=== PATIENT | female | born 1995 | race Caucasian/White ===

== ENCOUNTER 2018-03-27 03:42 | Emergency (ER) | payer OTHER, SELFPAY ==
[2018-03-27 03:59] VITALS: BP 150/64; PULSE 80; RESP 20; TEMP 36.4; O2SAT 96; BMI 35.2
--- NOTE | 2018-03-27 04:46 | DI.RAD.S_ITS ---
PROCEDURE: XR CHEST 1V INDICATIONS: ribs feel assymetric, patient feels tight in chest TECHNIQUE: One view of the chest was acquired. COMPARISON: [facility], , CHEST 2 VIEW, 06/05/2016, 13:16. FINDINGS: Surgical changes and devices: None. Lungs and pleura: No pleural effusions or pneumothorax. Lungs are clear. Mediastinum: Mediastinal contours appear normal. Heart size is normal. Bones and chest wall: No suspicious bony lesions. Overlying soft tissues appear unremarkable. IMPRESSION: No acute cardiopulmonary disease process. Dictated by: Gregoria Dexter MD, PhD on 03/27/2018 at 7:25 Approved by: Gregoria Dexter MD, PhD on 03/27/2018 at 7:25
--- NOTE | 2018-03-27 05:00 | ED_ITS ---
HPI - SOB/Dyspnea General Chief Complaint: Shortness of Breath/Dyspnea Stated Complaint: UNABLE TO BREATH, LUMP IN THROAT Time Seen by Provider: 03/27/18 04:26 Source: patient Mode of arrival: ambulatory Limitations: no limitations History of Present Illness This is a 22-year-old female comes to the emergency department with complaint of pain in her chest and back. Patient states that her ribs are out of place. She states that this is been going on for a long time she has been seen by a chiropractor followed by uzair Garg for osteopathic evaluation. 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 Patient states that she has had multiple x-rays and been told nothing was wrong. Tonight she states that she had been cleaning earlier in the day Um and had exacerbated her symptoms. She states that it feels like everything is out of place. She states that it feels quite uncomfortable, she feels that she needs anti- inflammatory medication. She states she was given a short course of what sounds like prednisone in the past at a low dose but that she feels she needs more over a longer period of time. Patient feels like she is having fevers on and off very quickly together. She feels short of breath in that it is hard to take a deep breath, she feels like something is stuck in her throat. She has felt nauseated and had some vomiting yesterday. She states she used to have vomiting all the time for several months. She did have her gallbladder out. She has not had any urinary symptoms. She occasionally has some diarrhea. Patient states that she has dealt with anxiety before but this feels different to her. Related Data Home Medications Medication Instructions Recorded Confirmed norethindrone-ethin estradiol 1 tab PO Q DAY #0 04/20/16 [Alyacen /35 (28)] Previous Rx's Medication Instructions Recorded prednisone 20 mg PO QDAY #5 tab 09/22/16 meloxicam 7.5 mg PO DAILY #10 tab 03/27/18 prednisone See Label Instructions PO PER PKG 03/27/18 DIR #21 each Allergies Allergy/AdvReac Type Severity Reaction Status Date / Time No Known Allergies Allergy Uncoded 03/27/18 04:10 Review of Systems Review of Systems All systems reviewed & are unremarkable except as noted in HPI and below Constitutional Reports chills and Reports fever(s) ENT Ears, Nose, Mouth, and Throat: Denies neck pain Cardiovascular Reports chest pain, Reports diaphoresis, Denies edema, Reports lightheadedness, Reports palpitations, Reports dyspnea and Reports other (chest pain with movement) Respiratory Denies cough, Denies hemoptysis, Reports pain on inspiration, Reports pain with cough and Reports dyspnea Gastrointestinal Gastrointestinal: Denies abdominal pain, Denies change in bowel habits, Denies diarrhea, Reports nausea and Reports vomiting Genitourinary Denies hematuria, Denies flank pain, Denies urinary incontinence and Denies urinary urgency Musculoskeletal Reports back pain, Denies neck pain, Denies numbness and Reports tingling Integumentary/Breasts Denies rash Neurologic Denies numbness and Reports tingling Endocrine Reports palpitations PFSH Surgical History Hx of tonsillectomy (Acute) Status post cholecystectomy (Acute) Social History Smoking Status: Never smoker Exam Initial Vital Signs Initial Vital Signs: Vital Signs Temperature 97.6 F 03/27/18 03:59 Pulse Rate 80 03/27/18 03:59 Respiratory Rate 20 03/27/18 03:59 Blood Pressure 150/64 H 03/27/18 03:59 Pulse Oximetry 96 03/27/18 03:59 GEN: well nourished, well appearing female, alert and oriented x 3, patient appears to be in moderate distress. Patient appears quite anxious. HEENT: Atraumatic, pupils are equal round reactive to light, extraocular movements are intact, nares are clear. Throat is clear without any exudates, erythema, tonsillar enlargement or uvular deviation HEART: Regular rate and rhythm without murmur, clicks, rubs. No carotid bruits , pulses are equal in upper and lower extremities LUNGS:Lungs clear to auscultation, no wheezes, rales, crackles, chest moves symmetrically ABD:bowel sounds normal, soft, non-tender, no guarding, rebound, rigidity, no masses noted, no hepatosplenomegaly :No CVA tenderness BACK: No cervical, thoracic or lumbar vertebral point tenderness. Patient has normal range of motion. Patient's gait is normal. Patient has some mild asymmetry of the back with the right greater than left, I can appreciate some very mild asymmetry the scapular level as well as the lower ribs. Muscle strength is 5/5 in lower extremities, 2+ pulses bilateral upper extremities, normal sensation all four extremities. MSCL: Non-tender, no muscle atrophy, muscles strength 5/5 upper and lower extremities, full range of motion. NEURO:CN 2-12 intact, sensation normal PSYCH: anxious. Course Orders Ordered: Discontinued Medications Acetaminophen (Tylenol) 975 mg PO NOW ONE Stop: 03/27/18 06:52 Last Admin: 03/27/18 07:00 Dose: 975 mg Sodium Chloride (Normal Saline 0.9%) 1,000 mls @ 150 mls/hr IV CONT CORINE Last Infusion: 03/27/18 07:17 Dose: 150 mls/hr Admin: 03/27/18 05:28 Dose: 150 mls/hr Ketorolac Tromethamine (Toradol) 30 mg IV NOW ONE Stop: 03/27/18 04:47 Last Admin: 03/27/18 05:28 Dose: 30 mg Vital Signs - 8 hr 03/27/18 03:59 Temperature 97.6 F Pulse Rate 80 Respiratory Rate 20 Blood Pressure 150/64 H Pulse Oximetry 96 MDM - SOB/Dyspnea Lab Data Result diagrams: 03/27/18 05:20 03/27/18 05:20 Lab Results 03/27/18 03/27/18 03/27/18 Range/Units 05:20 05:20 05:20 WBC 9.7 (4.5-11.0) X10^3/uL RBC 4.35 (4.0-5.2) X10^6/uL Hgb 13.1 (12.0-16.0) g/dL Hct 38.6 (36-46) % MCV 88.8 (80-100) fL MCH 30.1 (26-34) PG MCHC 33.9 (30-36) % RDW 14.4 (11.6-14.8) % Plt Count 289 (150-400) X10^3/uL Neut % (Auto) 80.1 H (50-75) % Lymph % (Auto) 13.4 L (25-40) % [place] % (Auto) 5.1 (3-14) % Eos % (Auto) 1.0 L (2-4) % Baso % (Auto) 0.4 (0-2) % Neut # (Auto) 7800 H (8518-0438) /uL D-Dimer (<230) ng/mL Sodium 140 (137-145) mmol/L Potassium 3.7 (3.4-5.1) mmol/L Chloride 106 (98-107) mmol/L Carbon Dioxide 21 L (22-32) mmol/L BUN 9 (7-17) mg/dL Creatinine 0.60 (0.52-1.04) mg/dL Estimated GFR > 60.0 (>60) mL/min BUN/Creatinine Ratio 15.0 (6-22) Glucose 102 H (70-100) mg/dL Calcium 9.1 (8.4-10.2) mg/dL Total Bilirubin 1.1 (0.2-1.3) mg/dL AST 26 (14-36) IU/L ALT 28 (9-52) IU/L Alkaline Phosphatase 86 (38-126) U/L Total Creatine Kinase 129 (30-135) U/L CK-MB (CK-2) 0.50 (<2.37) ng/mL CK-MB (CK-2) Rel Index 0.4 L (1.5-5.0) % Troponin I < 0.012 (0.01-0.034) ng/mL Total Protein 7.8 (6.3-8.2) g/dL Albumin 4.5 (3.5-5.0) g/dL Globulin 3.3 (1.7-4.1) g/dL Albumin/Globulin Ratio 1.4 (1.0-2.8) Lipase 40 (23-300) U/L TSH 3.12 (0.47-4.68) uIU/mL 03/27/18 Range/Units 06:15 WBC (4.5-11.0) X10^3/uL RBC (4.0-5.2) X10^6/uL Hgb (12.0-16.0) g/dL Hct (36-46) % MCV (80-100) fL MCH (26-34) PG MCHC (30-36) % RDW (11.6-14.8) % Plt Count (150-400) X10^3/uL Neut % (Auto) (50-75) % Lymph % (Auto) (25-40) % [place] % (Auto) (3-14) % Eos % (Auto) (2-4) % Baso % (Auto) (0-2) % Neut # (Auto) (8351-8086) /uL D-Dimer < 200 (<230) ng/mL Sodium (137-145) mmol/L Potassium (3.4-5.1) mmol/L Chloride (98-107) mmol/L Carbon Dioxide (22-32) mmol/L BUN (7-17) mg/dL Creatinine (0.52-1.04) mg/dL Estimated GFR (>60) mL/min BUN/Creatinine Ratio (6-22) Glucose (70-100) mg/dL Calcium (8.4-10.2) mg/dL Total Bilirubin (0.2-1.3) mg/dL AST (14-36) IU/L ALT (9-52) IU/L Alkaline Phosphatase (38-126) U/L Total Creatine Kinase (30-135) U/L CK-MB (CK-2) (<2.37) ng/mL CK-MB (CK-2) Rel Index (1.5-5.0) % Troponin I (0.01-0.034) ng/mL Total Protein (6.3-8.2) g/dL Albumin (3.5-5.0) g/dL Globulin (1.7-4.1) g/dL Albumin/Globulin Ratio (1.0-2.8) Lipase (23-300) U/L TSH (0.47-4.68) uIU/mL ECG Data Attestation: I personally reviewed and interpreted this ECG as follows: Interpretation: Sinus bradycardia rate of 54 P are 157 QRS and 93 QTC at 373. NOn specific ST changes. MDM Narrative Medical decision making narrative: Discussed with patient suspect any of her symptoms are musculoskeletal but wished to check some lab work to make sure there were no other causes. Chest x-ray appears normal, EKG shows no major changes. Lab work shows no major changes, ddimer is pending. Patient given Toradol and checked afterwards. Patient states helped a little but not much. She has also been resources for osteopathic manipulation if she so chooses. Discussed suspect there is mostly a musculoskeletal component. Given mobic rx and plan for follow up with pcp. Patient had improvement with steroids in past. Will try short course. She has only had twice before, once 3 years ago and 1-2 months ago. Discharge Plan Departure Patient Disposition: Home Clinical Impression: Rib pain, Atypical chest pain Discharge Date/Time: 03/27/18 07:20 Interventions: ED Discharge Assessment Last Done: 03/27/18 07:18 Instructions: DI for Atypical Chest Pain Activity Restrictions/Additional Instructions: Follow up with your primary care provider in the next 3-5 days for recheck. You may also with to follow with a provider for osteopathic manipulation. Included is 1 option for referral but there are many other physicians providing treatment in the area. Take medication as prescribed, this is an anti-inflammatory medication. Take with food. Take prednisone as prescribed. Return to the ER for recurrent symptoms such as syncope, persistent vomiting, new weakness, new numbness or other new or concerning symptoms. Prescriptions: New meloxicam 7.5 mg tablet 7.5 mg PO DAILY Qty: 10 RF: 0 prednisone 10 mg tablets,dose pack See Label Instructions PO PER PKG DIR Qty: 21 RF: 0 No Action norethindrone-ethin estradiol [Alyacen (28)] 1 TAB tablet 1 tab PO Q DAY Qty: 0 RF: 0 prednisone 20 MG tablet 20 mg PO QDAY Qty: 5 RF: 0 Referrals: Jaime Crooks MD [Primary Care Provider] -
[2018-03-27] MEDS: SODIUM CHLORIDE 0.9% 1,000 ML 150 ML IV (05:28)
[2018-03-27] MEDS: KETOROLAC 60 MG/2 ML VIAL 30 MG IV (05:28)
[2018-03-27 05:33] LABS: Add Manual Diff / Slide Review NO; Basophils Percent Auto 0.4 % (0-2); Hematocrit 38.6 % (36-46); Hemoglobin 13.1 g/dL (12.0-16.0); Lymphocytes Percent Auto 13.4 % (25-40); Mean Corpuscular HGB Conc 33.9 % (30-36); Mean Corpuscular Hemoglobin 30.1 PG (26-34); Mean Corpuscular Volume 88.8 fL (80-100); Monocytes Percent Auto 5.1 % (3-14); Neutrophils Absolute Auto 7800 /uL (3000-5900); Neutrophils Percent Auto 80.1 % (50-75); Platelet Count 289 X10^3/uL (150-400); Red Blood Cell Count 4.35 X10^6/uL (4.0-5.2); Red Cell Distribution Width 14.4 % (11.6-14.8); White Blood Cell Count 9.7 X10^3/uL (4.5-11.0)
[2018-03-27 05:58] LABS: Alanine Aminotransferase 28 IU/L (9-52); Albumin 4.5 g/dL (3.5-5.0); Albumin Globulin Ratio 1.4 (1.0-2.8); Alkaline Phosphatase 86 U/L (38-126); Aspartate Aminotransferase 26 IU/L (14-36); Bilirubin Total 1.1 mg/dL (0.2-1.3); Blood Urea Nitrogen 9 mg/dL (7-17); Calcium 9.1 mg/dL (8.4-10.2); Carbon Dioxide 21 mmol/L (22-32); Chloride 106 mmol/L (98-107); Creatine Kinase 129 U/L (30-135); Estimated Glomerular Filt Rate > 60.0 mL/min (>60); Globulin 3.3 g/dL (1.7-4.1); Glucose 102 mg/dL (70-100); Lipase 40 U/L (23-300); Potassium 3.7 mmol/L (3.4-5.1); Sodium 140 mmol/L (137-145); Total Protein 7.8 g/dL (6.3-8.2)
[2018-03-27 06:03] LABS: HEMOLYSIS 59 (0-50)
[2018-03-27 06:14] LABS: CKMB % Relative Index 0.4 % (1.5-5.0); Troponin I < 0.012 ng/mL (0.01-0.034)
[2018-03-27 06:29] LABS: Thyroid Stimulating Hormone 3.12 uIU/mL (0.47-4.68)
[2018-03-27 06:48] LABS: D Dimer < 200 ng/mL (<230)
[2018-03-27] MEDS: ACETAMINOPHEN 325 MG TABLET 975 MG PO (07:00)
[2018-03-27 07:18] VITALS: BP 124/85; PULSE 75; RESP 15; O2SAT 100
== END 2018-03-27 07:20 | disposition home or self-care (01) ==
PROVIDERS: Emergency Provider Emergency Medicine
DX: R07.89 Other chest pain (principal); R07.81 Pleurodynia
CPT/HCPCS: 36415; 36591; 71045; 80053; 82550; 82553; 83690; 84443; 84484; 85025; 85379; 93005; 96361; 96374; 99283; 99285; J1885

== ENCOUNTER 2019-08-20 08:10 | Emergency (ER) | payer OTHER, SELFPAY ==
--- NOTE | 2019-08-20 08:14 | ED_ITS ---
HPI - General Adult General Chief complaint: Shortness of Breath/Dyspnea Stated complaint: DIFFICULTY SWALLOWING/BREATHING Time Seen by Provider: 08/20/19 08:13 Source: patient and old records reviewed Mode of arrival: Ambulatory Limitations: no limitations History of Present Illness HPI narrative: This is a 23-year-old female comes emergency department with complaint of difficulty swallowing and a lump on the right side of her throat. Patient has been seen for similar in 2018 although she states she has been n oticing her symptoms since Tuesday. Patient states that it feels like there is something the right side of her throat she is not sure if it is a muscle versus a lump. She has not noticed any obvious swelling. She states difficult to swallow but she has been able to eat and drink without issue. She states she has not had any voice changes. She has not had any stridor or wheezing. Patient states that she really noticed it since Tuesday most recently. She has not had any fevers, no congestion, no cold or cough symptoms. No sore throat or pain in the lower throat. Patient denies any chest congestion or shortness of breath. She states she threw up once this morning. She denies any diarrhea or constipation, she denies any urinary symptoms. She also states that she has a rib out on her right side which she has had x-rays, seen an osteopath for and been told she needs surgery to put it back in place. She states she has a history of hormonal issues and describes taking a high dose estrogen for long period of time and recently stopped about 6 months ago. She denies any other current medications. She states she has had her gallbladder removed. She states he quit smoking marijuana in the last week. She expresses a high level of anxiety as she had a grandfather who had several forms of cancer in the past when he was young. Related Data Home Medications Medication Instructions Recorded Confirmed norethindrone-ethin estradiol 1 tab PO Q DAY #0 04/20/16 [Alyacen (28)] Previous Rx's Medication Instructions Recorded prednisone 20 mg PO QDAY #5 tab 09/22/16 meloxicam 7.5 mg PO DAILY #10 tab 03/27/18 prednisone See Rx Instructions PO PER PKG DIR 03/27/18 #21 each Allergies Allergy/AdvReac Type Severity Reaction Status Date / Time No Known Allergies Allergy Uncoded 03/27/18 04:10 Review of Systems Review of Systems ROS Unobtainable: All systems reviewed & are unremarkable except as noted in HPI and below Patient History Surgical History Hx of tonsillectomy (Acute) Status post cholecystectomy (Acute) Social History Smoking Status: Never smoker alcohol intake frequency: 0-2 drinks per day Exam Narrative Exam Narrative: GEN: well nourished, well appearing female, alert and oriented x 3, patient appears to be in mild distress. HEENT: Atraumatic, pupils are equal round reactive to light, extraocular movements are intact, nares are clear, TMs are clear with no fluid, there is no conjunctival pallor. Throat is clear without any exudates, erythema, tonsillar enlargement or uvular deviation, no stridor, no audible wheezing. No hoarseness. Patient has no difficulty swallowing secretions. No thyromegaly, mass, swelling or erythema noted on the neck. HEART: Regular rate and rhythm without murmur, clicks, rubs. LUNGS:Lungs clear to auscultation, no wheezes, rales, crackles, chest moves symmetrically ABD:bowel sounds normal, soft, non-tender, no guarding, rebound, rigidity, no masses noted, no hepatosplenomegaly MSCL: Non-tender, does have some asymmetry on the right back at the lower ribs that I can appreciate. No muscle atrophy, muscles strength 5/5 upper and lower extremities, full range of motion, normal gait NEURO:CN 2-12 intact, sensation normal SKIN: No rash, erythema or petechiae Initial Vital Signs Initial Vital Signs: Vital Signs Temperature 98.6 F 08/20/19 08:19 Pulse Rate 84 08/20/19 08:19 Respiratory Rate 12 08/20/19 08:19 Blood Pressure 154/81 H 08/20/19 08:19 Pulse Oximetry 100 08/20/19 08:19 Course Orders Ordered: ED Orders 08/20/19 08:25 US soft tissue head and neck Stat 08/20/19 08:35 Basic Metabolic Panel Stat Complete Blood Count AUTO DIFF Stat Thyroid Stimulating Hormone Stat Vital Signs Vital signs: Vital Signs - 8 hr 08/20/19 08:19 08/20/19 10:18 Temperature 98.6 F Pulse Rate 84 72 Respiratory Rate 12 14 Blood Pressure 154/81 H 136/72 Pulse Oximetry 100 100 Medical Decision Making Lab Data Lab results reviewed: Yes I reviewed the patient's lab results. Result diagrams: 08/20/19 08:35 08/20/19 08:35 Labs: Lab Results 08/20/19 08/20/19 08/20/19 Range/Units 08:35 08:35 08:35 WBC 8.9 (4.5-11.0) X10^3/uL RBC 4.74 (4.0-5.2) X10^6/uL Hgb 14.7 (12.0-16.0) g/dL Hct 42.3 (36-46) % MCV 89.1 (80-100) fL MCH 30.9 (26-34) PG MCHC 34.7 (30-36) % RDW 14.3 (11.6-14.8) % Plt Count 297 (150-400) X10^3/uL Neut % (Auto) 76.9 H (50-75) % Lymph % (Auto) 14.6 L (25-40) % [place] % (Auto) 6.8 (3-14) % Eos % (Auto) 1.2 L (2-4) % Baso % (Auto) 0.5 (0-2) % Neut # (Auto) 6800 (9061-8481) /uL Lymph # (Auto) 1300 (2496-4419) /uL [place] # (Auto) 600 (0-900) /uL Eos # (Auto) 100 (0-450) /uL Baso # (Auto) 0 (0-100) /uL Sodium 138 (137-145) mmol/L Potassium 3.4 (3.4-5.1) mmol/L Chloride 102 (98-107) mmol/L Carbon Dioxide 22 (22-32) mmol/L BUN 14 (7-17) mg/dL Creatinine 0.78 (0.52-1.04) mg/dL Estimated GFR > 60.0 (>60) mL/min BUN/Creatinine Ratio 17.9 (6-22) Glucose 100 (70-100) mg/dL Calcium 9.6 (8.4-10.2) mg/dL TSH 1.86 (0.47-4.68) uIU/mL Imaging Data US soft tissue neck: Radiologist's Impression: [address] [id number] Ultrasound Report Signed Patient: Natali Felton MMR#: [id number] : 1995Acct:[id number] Age/Sex: 23 / FDate of Service: 08/20/19 Loc: ED Accession Number: [id number] Procedure: US soft tissue head and neck Ordering Provider: Ginna Bravo D.O. PROCEDURE: US SOFT TISSUE HEAD AND NECK INDICATIONS: NECK LUMP TECHNIQUE: Real-time scanning was performed of the neck region of interest, with image documentation. COMPARISON: None. FINDINGS: Focus ultrasound examination in right to midline neck at patient's reported area of palpable lump shows no discrete soft tissue mass or fluid collection. No neck soft tissue lymphadenopathy is seen. IMPRESSION: No abnormality is seen in neck soft tissue at patient's reported area of palpable lump. Dictated by: Efrem Arreola M.D. on 08/20/2019 at 8:58 Approved by: Efrem Arreola M.D. on 08/20/2019 at 8:58 [facility] Narrative Medical decision making narrative: Patient was seen in 2018 for similar symptoms. She is anxious but otherwise appears well. Patient had basic labs including CBC, TSH and BMP included and soft tissue neck to evaluate for any structural changes or mass although none are palpated easily on exam. US is negative. lab show no acute abnormalities. Patient and I discussed today's findings and she was tearful and upset sounds like she has multiple social stressors. She states she has been sad because she recently lost her boyfriend and states she does have someone to talk to who include her states she has a complicated personal situation. She has also been stressed as she has been from her son recently. She states that she does feel safe she does not feel that she needs any intervention, she denies any homicidal or suicidal ideation. We did discuss potential for follow-up with ENT for little closer evaluation although we are not finding any concerning findings at this moment. Discharge Plan Departure Patient Disposition: Home Clinical Impression: Sensation of lump in throat Discharge Date/Time: 08/20/19 10:19 Activity Restrictions/Additional Instructions: Follow up with your physician, you may discuss referral to ENT for direct visualization if your physician feels it is appropriate. This may take some time to set up with the current viral pandemic. Referral was included in your paperwork. Continue any home medications as prescribed. Return to ER for inability to swallow secretions/saliva or liquids, muffled voice, stridor, swelling of face, mouth or neck, new redness or visible lumps, new shortness of breath, passing out or other new or concerning symptoms. Prescriptions: No Action norethindrone-ethin estradiol [Alyacen (28)] 1 TAB tablet 1 tab PO Q DAY Qty: 0 RF: 0 prednisone 20 MG tablet 20 mg PO QDAY Qty: 5 RF: 0 meloxicam 7.5 mg tablet 7.5 mg PO DAILY Qty: 10 RF: 0 prednisone 10 mg tablets,dose pack See Rx Instructions PO PER PKG DIR Qty: 21 RF: 0 Referrals: Jaime Crooks MD [Primary Care Provider] - Eddie Mcdermott MD [Physician] -
[2019-08-20 08:19] VITALS: BP 154/81; PULSE 84; RESP 12; TEMP 37; O2SAT 100
--- NOTE | 2019-08-20 08:25 | DI.US.S_ITS ---
PROCEDURE: US SOFT TISSUE HEAD AND NECK INDICATIONS: NECK LUMP TECHNIQUE: Real-time scanning was performed of the neck region of interest, with image documentation. COMPARISON: None. FINDINGS: Focus ultrasound examination in right to midline neck at patient's reported area of palpable lump shows no discrete soft tissue mass or fluid collection. No neck soft tissue lymphadenopathy is seen. IMPRESSION: No abnormality is seen in neck soft tissue at patient's reported area of palpable lump. Dictated by: Efrem Arreola M.D. on 08/20/2019 at 8:58 Approved by: Efrem Arreola M.D. on 08/20/2019 at 8:58
--- NOTE | 2019-08-20 08:28 | PC.NURSE ---
us of neck
[2019-08-20 08:46] LABS: Add Manual Diff / Slide Review NO; Basophils Absolute Auto 0 /uL (0-100); Basophils Percent Auto 0.5 % (0-2); Eosinophils Absolute Auto 100 /uL (0-450); Eosinophils Percent Auto 1.2 % (2-4); Hematocrit 42.3 % (36-46); Hemoglobin 14.7 g/dL (12.0-16.0); Lymphocytes Absolute Auto 1300 /uL (1100-4500); Lymphocytes Percent Auto 14.6 % (25-40); Mean Corpuscular HGB Conc 34.7 % (30-36); Mean Corpuscular Hemoglobin 30.9 PG (26-34); Mean Corpuscular Volume 89.1 fL (80-100); Monocytes Absolute Auto 600 /uL (0-900); Monocytes Percent Auto 6.8 % (3-14); Neutrophils Absolute Auto 6800 /uL (1500-7000); Neutrophils Percent Auto 76.9 % (50-75); Platelet Count 297 X10^3/uL (150-400); Red Blood Cell Count 4.74 X10^6/uL (4.0-5.2); Red Cell Distribution Width 14.3 % (11.6-14.8); White Blood Cell Count 8.9 X10^3/uL (4.5-11.0)
[2019-08-20 09:00] LABS: BUN Creatinine Ratio 17.9 (6-22); Blood Urea Nitrogen 14 mg/dL (7-17); Calcium 9.6 mg/dL (8.4-10.2); Carbon Dioxide 22 mmol/L (22-32); Chloride 102 mmol/L (98-107); Estimated Glomerular Filt Rate > 60.0 mL/min (>60); Glucose 100 mg/dL (70-100); HEMOLYSIS < 15 (0-50); Potassium 3.4 mmol/L (3.4-5.1); Sodium 138 mmol/L (137-145)
[2019-08-20 09:38] LABS: Thyroid Stimulating Hormone 1.86 uIU/mL (0.47-4.68)
[2019-08-20 10:18] VITALS: BP 136/72; PULSE 72; RESP 14; O2SAT 100
== END 2019-08-20 10:19 | disposition home or self-care (01) ==
PROVIDERS: Emergency Provider Emergency Medicine
DX: R22.1 Localized swelling, mass and lump, neck (principal); F41.9 Anxiety disorder, unspecified
CPT/HCPCS: 36415; 76536; 80048; 84443; 85025; 99283; 99284

== ENCOUNTER → 2021-07-13 06:51 | Outpatient (CLI) | payer OTHER, SELFPAY ==
--- NOTE | 2021-07-13 | DI.MRI.S_ITS ---
PROCEDURE: MR HEAD/BRAIN WO/W CON INDICATIONS: Benign intracranial hypertension. TECHNIQUE: Noncontrast axial T1 spin echo, axial T2 fast spin echo, sagittal and axial FLAIR, coronal T2 fast spin echo, axial gradient echo, axial diffusion and ADC through the brain. After the administration of contrast, axial and coronal 3D VIBE or T1 spin echo with fat saturation through the brain. COMPARISON: None. FINDINGS: Image quality: Excellent. CSF Spaces: Basal cisterns are patent. No extra-axial fluid collections. Ventricles are normal in size and shape. Brain: No midline shift. No intracranial bleeds or masses. No abnormal intracranial enhancement. No abnormal dural or leptomeningeal enhancement. The brainstem appears normal. Diffusion-weighted images demonstrate no acute ischemic insults. No chronic ischemic insults. Normal intravascular flow voids are present. Dural sinuses demonstrate normal postcontrast enhancement. Skull and face: Calvarial marrow is normal in signal. Orbits appear normal. Sinuses: Small mucous retention cyst versus polyp noted in the left maxillary sinus. The mastoids appear clear. IMPRESSION: 1. No intracranial disease process. No abnormal intracranial mass or mass effect. 3. No suspicious postcontrast enhancement. Dictated by: Gregoria Dexter MD, PhD on 07/13/2021 at 10:08 Approved by: Gregoria Dexter MD, PhD on 07/13/2021 at 10:14
--- NOTE | 2021-07-13 | DI.MRI.S_ITS ---
PROCEDURE: MR ANGIO HEAD WO CON INDICATIONS: Benign intracranial hypertension TECHNIQUE: Sagittal T1 spin echo through the brain. Coronal 2D [id number] MR venogram, with 3-dimensional [id number] (MIP) reformats of the intracranial veins then performed. COMPARISON: None. FINDINGS: Image quality: Excellent. Veins: Sagittal, straight, transverse, and sigmoid sinuses all appear patent. Normal flow noted in the visualized internal jugular veins. Brain: Limited images through the brain parenchyma show no intracranial bleeds or mass effects. IMPRESSION: Normal MR venogram of the brain with no evidence of venous thrombosis. Dictated by: Gregoria Dexter MD, PhD on 07/13/2021 at 10:10 Approved by: Gregoria Dexter MD, PhD on 07/13/2021 at 10:12
== END ==
PROVIDERS: PCP Student in an Organized Health Care Education/Training Program; Referring Provider Student in an Organized Health Care Education/Training Program; Visit Provider Student in an Organized Health Care Education/Training Program
DX: G93.2 Benign intracranial hypertension (principal)
CPT/HCPCS: 70544; 70553; A9579